=== PATIENT | male | born 1985 | race Caucasian/White ===

== ENCOUNTER 2021-11-08 09:11 | Emergency (ER) | payer BC, SELFPAY ==
[2021-11-08 09:33] VITALS: BP 125/83; PULSE 103; RESP 16; TEMP 36.1; O2SAT 95
--- NOTE | 2021-11-08 10:06 | ED.SKABFB ---
HPI - Skin/Abscess/Foreign Bdy General Chief complaint: Skin/Abscess/Foreign Body Stated complaint: cyst Time Seen by Provider: 11/08/21 10:03 Source: patient, RN notes reviewed and old records reviewed Mode of arrival: ambulatory Limitations: no limitations History of Present Illness HPI narrative: 36-year-old male presents to [facility] with complaints of red raised painful lesion to area of right upper gluteal fold for approximately 1 week duration. Patient reports that he has Cystic Fibrosis and is presently also on Cipro daily and is on new medication Trikafta which has helped him manage his condition greatly.Patient has 1.5X1.5cm firm raised red tender area to upper right gluteal fold with no induration of tissue.Patient denies any fevers, chills or sweats. MD complaint: abscess/boil Related Data Home Medications Medication Instructions Recorded Confirmed azithromycin 500 mg PO DAILY 11/08/21 11/08/21 blood-glucose sensor [Dexcom G6 11/08/21 11/08/21 Sensor] blood-glucose transmitter [Dexcom 11/08/21 11/08/21 G6 Transmitter] ciprofloxacin HCl 750 mg PO DAILY 11/08/21 11/08/21 dornase jacinta [Pulmozyme] 1 mg INHALATION DAILY 11/08/21 11/08/21 zxuzywjsctq-jaakmrwrom-nryjwmx 1 ea PO DAILY 11/08/21 11/08/21 [Trikafta] insulin aspart U-100 100 unit SUBCUT DAILY 11/08/21 11/08/21 ktdnrd-lwhkeeby-fguugrf [Creon] 1 cap PO DAILY 11/08/21 11/08/21 lisinopril 10 mg PO DAILY 11/08/21 11/08/21 omeprazole 40 mg PO DAILY 11/08/21 11/08/21 tobramycin in 0.225 % NaCl 300 mg INHALATION DAILY 11/08/21 11/08/21 Allergies Allergy/AdvReac Type Severity Reaction Status Date / Time No Known Allergies Allergy Unknown Verified 11/08/21 10:26 Review of Systems Review of Systems: CONSTITUTIONAL: Denies fever, chills, or sweats. EYES: Denies visual changes, redness, or discharge. ENT: Denies acute rhinorrhea, congestion, sore throat, or otalgia. CARDIOVASCULAR: Denies chest pain, palpitations, or edema. RESPIRATORY: Denies cough or dyspnea. GASTROINTESTINAL: Denies abdominal pain, nausea, vomiting, or diarrhea. GENITOURINARY: Denies dysuria or hematuria. SKIN: Positive for red raised firm painful lesion to right upper gluteal fold MUSCULOSKELETAL: Denies back pain, joint pain, or myalgia. NEUROLOGIC: Denies headache, numbness, or weakness. PSYCHIATRIC: Positive for history of anxiety or depression. All systems reviewed & are unremarkable except as noted in HPI and below PMFSH Past Medical History Medical History (Updated 11/10/21 @ 00:24 by Devora Carrillo NP) Anxiety and depression Cystic fibrosis Diabetes Pelvic fracture Surgical History Surgical History (Updated 11/10/21 @ 00:24 by Devora Carrillo NP) H/O sinus surgery Family History Family History Sibling Family history of cystic fibrosis Mother Family history of mental disorder Grandparent Family history of bipolar disorder Family history of glaucoma Father Asthma Father Asthma Social History Social History (Updated 11/10/21 @ 00:22 by Devora Carrillo NP) Smoking status: Never smoker Second hand tobacco smoke exposure: No Alcohol intake: current Substance use: never Living arrangements: with family Gender identity (if verbalized by the patient): Male Comments At time of signature, agree with nursing past medical, surgical, social and family history. There is no relevant family history pertinent to the presenting complaint Exam Narrative: GENERAL: Well-appearing, well-nourished, and in no acute distress. HEAD: Normocephalic, atraumatic. EYES: PERRLA and EOMI. ENT: Nares clear, some clear rhinorrhea no epistaxis. Mucous membranes moist.TM's normal with good light reflex, throat normal with no lesions or exudates or tonsil swelling. NECK: Supple.no lymphadenopathy CHEST: Clear to auscultation. No respiratory distress. SaO2 95% on room air HEART: Regular rate and rhythm.
== END 2021-11-08 10:55 | disposition home or self-care (01) ==
PROVIDERS: Emergency Provider Registered Nurse
DX: L02.31 Cutaneous abscess of buttock (principal); E84.9 Cystic fibrosis, unspecified; E11.9 Type 2 diabetes mellitus without complications; F41.9 Anxiety disorder, unspecified; F32.A Depression, unspecified
CPT/HCPCS: 99213; G0463

== ENCOUNTER 2021-12-25 18:31 | Emergency (ER) | payer BC, SELFPAY ==
[2021-12-25] VITALS (26 sets, daily range): BP systolic 143–195; BP diastolic 75–89; PULSE 67–90; RESP 12–23; TEMP 36.5; O2SAT 97–100
--- NOTE | ~2021-12-25 | XR_ITS ---
EXAMINATION: XR chest 2V DATE: 12/25/2021 19:14 INDICATION: Midsternal chest pain, history of cystic fibrosis TECHNIQUE: PA and lateral views of the chest are obtained. COMPARISON: 04/13/2015 FINDINGS: There are chronic right perihilar opacities. No acute airspace opacities are identified. A right internal jugular port ends with its tip in the distal superior vena cava. There is no pleural e ffusion or pneumothorax. The cardiomediastinal silhouette is normal. The visualized bones and soft ti ssues are unremarkable. IMPRESSION: 1. No acute cardiopulmonary abnormality. 2. Chronic right perihilar opacities, consistent with cystic fibrosis. Reviewed, dictated and finalized at location F. LEADER/CONTROL ROOM OPERATOR
--- NOTE | 2021-12-25 18:49 | ECG_ITS ---
Measurements Intervals [place] Rate: 70 P: 59 LA: 132 QRS: 14 QRSD: 95 T: 24 QT: 399 QTc: 433 Interpretive Statements SINUS RHYTHM LEFT ATRIAL ENLARGEMENT DELAYED PRECORDIAL R/S TRANSITION POSSIBLE LEFT VENTRICULAR HYPERTROPHY BASELINE ARTIFACT- II, III, AVR, AVF, V3-V6 BORDERLINE ECG Electronically Signed On 12-25-2021 19:15:09 TELEGRAPHIC TYPEWRITER OPERATOR CHIEF by Evan Shetty D.O.
[2021-12-25 19:09] LABS: Basophils Percent Auto 0.4 % (0.2-1.2); Eosinophils Absolute Auto 0.4 K/mm3 (0-0.3); Hematocrit 39.8 % (42.0-52.0); Hemoglobin 13.3 g/dL (14.0-18.0); Immature Granulocyte Absolute 0.03 K/mm3 (0.00-0.031); Immature Granulocyte Percent A 0.3 % (0-0.5); Lymphocytes Absolute Auto 2.38 K/mm3 (0.9-3.2); Mean Corpuscular HGB Conc 33.4 g/dl (32-36); Mean Corpuscular Volume 86.9 fl (80-100); Mean Platelet Volume 10.1 fl (7.4-10.4); Monocytes Absolute Auto 0.9 K/mm3 (0.1-0.6); Monocytes Percent Auto 8.1 % (2.6-8.5); Neutrophils Absolute Auto 7.1 K/mm3 (1.3-6.7); Neutrophils Percent Auto 65.2 % (45.5-73.1); Platelet Count Result 345 k/mm3 (150-375); Red Blood Count 4.58 M/mm3 (4.6-6.20); Red Cell Distribution Width 14.7 % (11.5-14.5); White Blood Count 10.8 K/mm3 (4.5-10.0)
[2021-12-25 19:20] LABS: INR 1.1; Partial Thromboplastin Time 30.5 SECONDS (22.3-36.8); Prothrombin Time 13.3 Seconds (11.1-14.7)
[2021-12-25 19:33] LABS: Alanine Aminotransferase 24 U/L (4-50); Albumin Level 4.1 g/dL (3.5-5.1); Alkaline Phosphatase 166 U/L (38-126); Anion Gap 9 mmol/L (8-16); Aspartate Amino Transferase 30 U/L (17-59); Bilirubin,Total 0.9 mg/dL (0.2-1.3); Blood Urea Nitrogen 13 mg/dL (9-20); Calcium 8.8 mg/dL (8.4-10.2); Carbon Dioxide 23 mmol/L (22-30); Chloride 104 mmol/L (98-107); Estimated CRCL calculation 69 ml/min; Estimated Glomerular Filt Rate > 60; Glucose 133 mg/dL (65-110); Lipase 13 U/L (23-300); Potassium 3.8 mmol/L (3.4-5.0); Sodium 136 mmol/L (137-145)
--- NOTE | 2021-12-25 19:40 | ED.CHESTPAIN ---
HPI - Chest Pain General Chief Complaint: Chest Pain Stated Complaint: Chest Pain Time Seen by Provider: 12/25/21 19:13 Source: patient Mode of arrival: ambulatory Limitations: no limitations History of Present Illness HPI narrative: Patient is a 36-year-old male complaining of chest pain, left chest wall, dull, 5 out of 10, nonradiating started this morning. Patient denies any shortness of breath, abdominal pain, nausea, vomiting, diaphoresis, fever or chills Related Data Home Medications Medication Instructions Recorded Confirmed azithromycin 500 mg PO DAILY 11/08/21 11/08/21 blood-glucose sensor [Dexcom G6 11/08/21 11/08/21 Sensor] blood-glucose transmitter [Dexcom 11/08/21 11/08/21 G6 Transmitter] dornase jacinta [Pulmozyme] 1 mg INHALATION DAILY 11/08/21 11/08/21 phbjmqylcmw-zqjchdiywo-mkzbmwz 1 ea PO USEASDIRECTD 11/08/21 11/08/21 [Trikafta] insulin aspart U-100 100 unit SUBCUT DAILY 11/08/21 11/08/21 hhkbss-eqpxlovu-iowdvdf [Creon] 1 cap PO TIDWMEAL 11/08/21 11/08/21 lisinopril 10 mg PO DAILY 11/08/21 11/08/21 omeprazole 40 mg PO DAILY 11/08/21 11/08/21 tobramycin in 0.225 % NaCl 300 mg INHALATION DAILY 11/08/21 11/08/21 paroxetine HCl 40 mg PO DAILY 12/25/21 Allergies Allergy/AdvReac Type Severity Reaction Status Date / Time No Known Allergies Allergy Unknown Verified 12/25/21 20:21 Review of Systems Review of Systems: All systems reviewed & are unremarkable except as noted in HPI and below Constitutional: Constitutional: Denies body ache(s), Denies chills, Denies excessive sweating, Denies fatigue, Denies fever(s), Denies headache(s), Denies lethargy, Denies malaise, Denies weakness and Denies weight loss Eyes: Eyes: Denies blurry vision, Denies change in vision and Denies loss of vision ENT: Denies dizziness, Denies ear discharge, Denies headache(s), Denies lip swelling, Denies epistaxis, Denies nasal congestion, Denies neck pain, Denies throat swelling and Denies tongue swelling Cardiovascular: Cardiovascular: Denies diaphoresis, Denies rapid heart rate, Denies edema, Denies irregular heart rhythm, Denies lightheadedness, Denies palpitations, Denies dyspnea and Denies dyspnea on exertion Respiratory: Respiratory: Denies chest congestion, Denies cough, Denies hemoptysis, Denies dyspnea and Denies dyspnea on exertion Gastrointestinal: Gastrointestinal: Denies abdominal pain, Denies melena, Denies hematochezia, Denies diarrhea, Denies nausea, Denies vomiting and Denies hematemesis Musculoskeletal: Musculoskeletal: Denies abnormal gait, Denies deformity, Denies joint swelling, Denies limited range of motion, Denies neck pain and Denies numbness Neurologic: Denies Abnormal speech present, Denies abnormal gait, Denies confusion, Denies dizziness, Denies headache(s), Denies focal weakness, Denies loss of vision, Denies numbness, Denies Other visual disturbances, Denies Sensory deficit (Neuro) and Denies weakness Psychiatric: Psychiatric: Denies confusion, Denies depression, Denies auditory hallucinations, Denies homicidal ideation and Denies suicidal ideation Endocrine: Endocrine: Denies cold intolerance, Denies excessive sweating, Denies fatigue, Denies heat intolerance and Denies palpitations Hematologic/Lymphatic: Hematologic/Lymphatic: Denies easy bleeding and Denies easy bruising Allergic/Immunologic: Allergic/Immunologic: Denies lip swelling, Denies throat swelling and Denies tongue swelling PMFSH Past Medical History Medical History Anxiety and depression Cystic fibrosis Diabetes Pelvic fracture Surgical History Surgical History H/O sinus surgery Family History Family History Sibling Family history of cystic fibrosis Mother Family history of mental disorder Grandparent Family history of bipolar disorder Family history of gla
[2021-12-25 19:45] LABS: Troponin I < 0.012 ng/mL (0.000-0.034)
[2021-12-25] MEDS: ASPIRIN 81 MG CHEWABLE TABLET 324 MG PO (20:18)
[2021-12-25 22:34] LABS: Troponin I < 0.012 ng/mL (0.000-0.034)
== END 2021-12-25 23:21 | disposition home or self-care (01) ==
PROVIDERS: Physician Assistant; Emergency Provider Emergency Medicine; PCP Family Medicine
DX: E84.9 Cystic fibrosis, unspecified (principal); E11.9 Type 2 diabetes mellitus without complications; F41.9 Anxiety disorder, unspecified; F32.A Depression, unspecified; Z79.4 Long term (current) use of insulin
CPT/HCPCS: 36415; 71046; 80053; 83690; 84484; 85025; 85610; 85730; 93005; 99284; A9270

== ENCOUNTER 2023-11-19 15:18 | Emergency (ER) | payer OTHER, BC, SELFPAY ==
[2023-11-19] VITALS (7 sets, daily range): BP systolic 96–161; BP diastolic 55–94; PULSE 60–84; RESP 12–18; TEMP 36.1; O2SAT 97–100
--- NOTE | ~2023-11-19 | XR_ITS ---
EXAMINATION: XR chest 2V DATE: 11/19/2023 15:49 INDICATION: Chest pain. TECHNIQUE: Frontal and lateral views of the chest were obtained. COMPARISON: Chest 2 views 12/25/2021 FINDINGS: There are interstitial opacities in the lungs with an upper lung predominance. No pleural e ffusion or pneumothorax. The heart size is normal. There is a right internal jugular port with tip in superior vena cava. IMPRESSION: 1. Stable chronic lung disease with an upper lung predominance, consistent with cystic fibrosis. Reviewed, dictated and finalized at location E. CCO SORTER
--- NOTE | ~2023-11-19 | CT_ITS ---
EXAMINATION: CT abdomen pelvis w con DATE: 11/19/2023 17:20 INDICATION: Epigastric abdominal pain. Vomiting. TECHNIQUE: Computed tomography (CT) of the abdomen and pelvis was performed with 100 mL Omnipaque 350 intravenous contrast. Automated exposure control and iterative reconstruction technique were employe d. The dose-length product was 491.36 mGy-cm. COMPARISON: None. FINDINGS: The visualized portions of the lung bases demonstrate bronchiectasis and mild atelectasis. No pleural effusion. The heart size is normal. No pericardial effusion. The liver, gallbladder, splee n, pancreas, adrenal glands, and kidneys are normal. There are no dilated loops of bowel. There are n o pathologically enlarged lymph nodes. There is no free intraperitoneal fluid. There are old healed f ractures of the bilateral superior and inferior pubic rami. There is screw fixation of the sacroiliac joints. There is a chronic compression fracture of L1. There is mild lumbar spondylosis. IMPRESSION: 1. No etiology for the patient's symptoms. Reviewed, dictated and finalized at location E. OIL COOLER OPERATOR
--- NOTE | 2023-11-19 15:19 | ECG_ITS ---
Measurements Intervals [place] Rate: 69 P: 74 VT: 164 QRS: 1 QRSD: 84 T: 55 QT: 404 QTc: 435 Interpretive Statements SINUS RHYTHM LEFT ATRIAL ENLARGEMENT CANNOT RULE OUT SEPTAL INFARCT, AGE INDETERMINATE BASELINE ARTIFACT- I, III, AVR, AVL, AVF, V1-V3 ABNORMAL ECG COMPARED TO ECG 12/25/2021 18:44:23 Electronically Signed On 11-19-2023 15:50:24 CHEMICAL RESEARCH WORKER by Evan Shetty D.O.
[2023-11-19 15:38] LABS: Basophils Percent Auto 0.3 % (0.2-1.2); Eosinophils Absolute Auto 0.3 K/mm3 (0-0.3); Eosinophils Percent Auto 2.4 % (0-4.4); Hematocrit 36.9 % (42.0-52.0); Hemoglobin 12.4 g/dL (14.0-18.0); Immature Granulocyte Absolute 0.04 K/mm3 (0.00-0.031); Immature Granulocyte Percent A 0.3 % (0-0.5); Lymphocytes Absolute Auto 1.25 K/mm3 (0.9-3.2); Lymphocytes Percent Auto 10.9 % (18.3-44.2); Mean Corpuscular HGB Conc 33.6 g/dl (32-36); Mean Corpuscular Hemoglobin 28.8 pg (26-34); Mean Corpuscular Volume 85.6 fl (80-100); Mean Platelet Volume 9.9 fl (7.4-10.4); Monocytes Absolute Auto 0.5 K/mm3 (0.1-0.6); Monocytes Percent Auto 3.9 % (2.6-8.5); Neutrophils Absolute Auto 9.4 K/mm3 (1.3-6.7); Neutrophils Percent Auto 82.2 % (45.5-73.1); Platelet Count Result 260 k/mm3 (150-375); Red Blood Count 4.31 M/mm3 (4.6-6.20); Red Cell Distribution Width 14.2 % (11.5-14.5); White Blood Count 11.4 K/mm3 (4.5-10.0)
[2023-11-19 15:49] LABS: Alanine Aminotransferase 29 U/L (6-50); Albumin Level 3.6 g/dL (3.5-5.1); Alkaline Phosphatase 178 U/L (38-126); Anion Gap 7 mmol/L (8-16); Aspartate Amino Transferase 26 U/L (17-59); Blood Urea Nitrogen 33 mg/dL (9-20); Calcium 8.5 mg/dL (8.4-10.2); Carbon Dioxide 22 mmol/L (22-30); Chloride 107 mmol/L (98-107); Estimated CRCL calculation 53 ml/min; Estimated Glomerular Filt Rate 53; Glucose 165 mg/dL (65-110); Sodium 136 mmol/L (137-145)
[2023-11-19 15:50] LABS: Partial Thromboplastin Time 29.2 SECONDS (22.3-36.8); Prothrombin Time 13.4 Seconds (11.1-14.7)
[2023-11-19 16:00] LABS: Troponin I < 0.012 ng/mL (0.000-0.034)
[2023-11-19 16:17] LABS: Lipase < 10 U/L (23-300)
[2023-11-19] MEDS: SODIUM CHLORIDE 0.9% IV 1,000 ML 999 ML IV CONT ×2 (17:09→20:12)
[2023-11-19] MEDS: HYDROmorphone HCL INJ (*CRX) 1 MG/ML SYR 0.5 MG IV PUSH ×2 (17:10→20:11)
[2023-11-19] MEDS: ONDANSETRON INJ 4 MG/2 ML VIAL IV PUSH ×2 (17:10→20:11)
[2023-11-19] MEDS: FAMOTIDINE 20 MG/2 ML VIAL IV PUSH (17:28)
--- NOTE | 2023-11-19 17:40 | ED.CHESTPAIN ---
HPI - Chest Pain General Chief Complaint: Chest Pain Stated Complaint: chest pain Time Seen by Provider: 11/19/23 16:07 History of Present Illness HPI narrative: patient is a 38-year-old male with a history of cystic fibrosis, type 1 diabetes presenting with epigastric pain. Patient states that he woke up and felt fine. States that sometime in the morning he started to develop some nausea and generalized abdominal discomfort. He tried to eat a small meal but unfortunately his symptoms continued and worsened. He then developed severe epigastric pain associated with vomiting. States this happened 1 time several months ago and he was seen in an ER and able to go home. He denies fevers, cough, dyspnea, constipation, dysuria, leg swelling. Related Data Home Medications Medication Instructions Recorded Confirmed azithromycin 500 mg tablet 500 mg PO DAILY 11/08/21 11/08/21 blood-glucose sensor (Dexcom G6 11/08/21 11/08/21 Sensor device) blood-glucose transmitter (Dexcom 11/08/21 11/08/21 G6 Transmitter device) dornase jacinta 1 mg/mL solution for 1 mg inhalation DAILY 11/08/21 11/08/21 inhalation (Pulmozyme) elexacaftor 100 mg-tezacaf 1 ea PO USEASDIRECTD 11/08/21 11/08/21 50mg-ivacaf 75mg(d)/ivacaf 150mg(n) tablets (Trikafta) insulin aspart U-100 100 unit/mL 100 unit subcut DAILY 11/08/21 11/08/21 subcutaneous solution gdtoea-khbjidvw-dwloozo 1 cap PO TIDWMEAL 11/08/21 11/08/21 36,000-114,000-180,000 unit capsule,delay rel (Creon) lisinopril 10 mg tablet 10 mg PO DAILY 11/08/21 11/08/21 omeprazole 40 mg capsule,delayed 40 mg PO DAILY 11/08/21 11/08/21 release tobramycin 300 mg/5 mL in 0.225 % 300 mg inhalation DAILY 11/08/21 11/08/21 sodium chloride for nebulization Allergies Allergy/AdvReac Type Severity Reaction Status Date / Time No Known Allergies Allergy Unknown Verified 12/25/21 20:21 Review of Systems Review of Systems: All systems reviewed & are unremarkable except as noted in HPI and below PMFSH Past Medical History Medical History Anxiety and depression Cystic fibrosis Diabetes Pelvic fracture Surgical History Surgical History H/O sinus surgery Family History Family History Sibling Family history of cystic fibrosis Mother Family history of mental disorder Grandparent Family history of bipolar disorder Family history of glaucoma Father Asthma Father Asthma Social History Social History Smoking status: Never smoker Second hand tobacco smoke exposure: No Alcohol intake: current Substance use: never Living arrangements: with family Gender identity (if verbalized by the patient): Male Exam Narrative: GENERAL: Nontoxic, no acute distress, pleasant cooperative HEAD: Normocephalic, atraumatic. EYES: PERRLA and EOMI. ENT: Mucous membranes dry NECK: Supple. CHEST: Clear to auscultation. No respiratory distress. HEART: Regular rate and rhythm. No murmur heard. Normal peripheral pulses. ABDOMEN: Soft, nontender, nondistended, normal active bowel sounds. EXTREMITIES: Normal range of motion. No edema. SKIN: Warm, dry, no rash. NEURO: No focal deficits. Alert and oriented x3. PSYCH: Normal mood and affect. Course Vital Signs Vital signs: Vital Signs Pulse Rate 60 11/19/23 15:29 Respiratory Rate 18 11/19/23 15:29 Blood Pressure 96/55 L 11/19/23 15:29 Pulse Oximetry 100 11/19/23 15:29 Temperature 96.9 F L 11/19/23 15:35 Pulse Rate 77 11/19/23 20:41 Respiratory Rate 15 11/19/23 20:41 Blood Pressure 157/87 H 11/19/23 20:41 Pulse Oximetry 100 11/19/23 20:41 MDM - Chest Pain MDM Narrative Medical decision making narrative: Patient is a 38-year-old male presenting
--- NOTE | 2023-11-19 19:01 | ECG_ITS ---
Measurements Intervals [place] Rate: 70 P: 61 NM: 153 QRS: -3 QRSD: 94 T: 50 QT: 393 QTc: 426 Interpretive Statements SINUS RHYTHM POSSIBLE LEFT ATRIAL ENLARGEMENT BASELINE ARTIFACT- V4-V6 BORDERLINE ECG COMPARED TO ECG 11/19/2023 15:23:38 NO SIGNIFICANT CHANGES Electronically Signed On 11-20-2023 10:07:24 BIODIESEL PROCESSING TECHNICIAN by Evan Shetty D.O.
[2023-11-19 19:25] LABS: Troponin I < 0.012 ng/mL (0.000-0.034)
[2023-11-19] MEDS: BELLADONNA ALK/PHENOB ELIX 10 ML, MAG HYDROX/ALUMINUM HYD/SIMETH 30 ML, LIDOCAINE HCL 2... PO (20:34)
[2023-11-19] MEDS: HYDROcodone/acetaminophen (*CRX) 5-325 MG TABLET 1 TAB PO (22:26)
[2023-11-19] MEDS: HEPARIN SODIUM LOCK FLUSH 500 UNITS/5 ML VIAL (22:48)
== END 2023-11-19 22:50 | disposition home or self-care (01) ==
PROVIDERS: Emergency Provider Emergency Medicine; PCP Family Medicine
DX: R10.13 Epigastric pain (principal); R11.2 Nausea with vomiting, unspecified; F41.9 Anxiety disorder, unspecified; F32.A Depression, unspecified; E84.9 Cystic fibrosis, unspecified; E11.9 Type 2 diabetes mellitus without complications; Z79.4 Long term (current) use of insulin
CPT/HCPCS: 36415; 71046; 74177; 80053; 83690; 84484; 85025; 85610; 85730; 93005; 96361; 96374; 96375; 96376; 99284; A9270; J1170; J1642; J2405; J7030; Q9967

== ENCOUNTER 2024-03-16 02:22 | Day surgery (SDC) | payer OTHER, SELFPAY ==
[2024-03-15 11:53] VITALS: BMI 26.7
[2024-03-16 06:44] VITALS: BP 116/77; PULSE 95; RESP 18; TEMP 36.1; O2SAT 98
[2024-03-16 06:53] LABS: Glucose Point of Care 294 mg/dl (65-105)
--- NOTE | 2024-03-16 07:25 | WPDANESEPPF ---
Anes - Initial Pre Proc Eval Procedure: Operation Date: 03/16/24 08:00 Proposed Procedures p Esophagogastroduodenoscopy - Marvin Zabala MD Date/Time: 03/16/24 07:25 Surgeon: Marvin Zabala MD Pre Op Diagnosis: Epigastric pain, N&V, Other chest pain Patient Data Age: 38 Gender: M Height: 1.65 m Weight: 77.6 kg Last Vital Signs Temp 97 F L 03/16/24 06:44 Pulse 95 03/16/24 06:44 Resp 18 03/16/24 06:44 BP 116/77 03/16/24 06:44 Pulse Ox 98 03/16/24 06:44 O2 Del Method Room Air 03/16/24 06:44 Allergies Allergy/AdvReac Type Severity Reaction Status Date / Time No Known Allergies Allergy Unknown Verified 03/16/24 06:43 Home Medications Medication Instructions Recorded Confirmed Type azithromycin 500 mg tablet 500 mg PO EVERY OTHER DAY 11/08/21 03/15/24 History blood-glucose sensor (Dexcom G6 11/08/21 11/27/23 History Sensor device) blood-glucose transmitter (Dexcom 11/08/21 11/27/23 History G6 Transmitter device) dornase jacinta 1 mg/mL solution for 1 mg inhalation DAILY 11/08/21 03/15/24 History inhalation (Pulmozyme) elexacaftor 100 mg-tezacaf 1 ea PO USEASDIRECTD 11/08/21 03/15/24 History 50mg-ivacaf 75mg(d)/ivacaf 150mg(n) tablets (Trikafta) insulin aspart U-100 100 unit/mL 100 unit subcut DAILY 11/08/21 03/15/24 History subcutaneous solution ijauni-nmbzvqyd-rjczmml 1 cap PO TIDWMEAL 11/08/21 03/15/24 History 36,000-114,000-180,000 unit capsule,delay rel (Creon) lisinopril 10 mg tablet 10 mg PO DAILY 11/08/21 03/15/24 History tobramycin 300 mg/5 mL in 0.225 % 300 mg inhalation DAILY 11/08/21 03/15/24 History sodium chloride for nebulization bupropion HCl 300 mg 24 hr tablet, See Rx Instructions .Route 09/02/22 03/15/24 Rx extended release .COMPLEX #90 tabs paroxetine HCl 40 mg tablet See Rx Instructions .Route 09/02/22 03/15/24 Rx .COMPLEX #90 tabs ondansetron 4 mg disintegrating 4 mg PO Q8H PRN nausea and 11/19/23 03/15/24 Rx tablet vomiting #14 tabs pantoprazole 20 mg tablet,delayed 20 mg PO DAILY 4 weeks #30 tabs 11/27/23 03/15/24 Rx release Laboratory Tests 03/16/24 06:48 POC Capillary Glucose 294 H mg/dl (65-105) Patient hx anesthesia problems: none Family hx anesthesia problems: none Results Review: All pre-operative results and documents have been reviewed as part of the pre-operative evaluation. [facility] Past Medical History Medical History (Updated 11/27/23 @ 09:10 by Karly August APRN) Anxiety and depression Cystic fibrosis Diabetes Exocrine pancreatic insufficiency Hypertension Pelvic fracture Surgical History Surgical History H/O sinus surgery Family History Family History Sibling Family history of cystic fibrosis Mother Family history of mental disorder Grandparent Family history of bipolar disorder Family history of glaucoma Father Asthma Father Asthma Social History Social History Smoking status: Never smoker Second hand tobacco smoke exposure: No Alcohol intake: never Substance use: never Substance use type: does not use Living arrangements: with family Gender identity (if verbalized by the patient): Male Spiritual care concerns: No Anes - Eval Final PreProcedure Day of Procedure 03/16/24 07:25 Patient weight: normal Heart: regular rate and rhythm Lungs: clear to auscultation Airway: Mallampati scale class II Neurological: alert and oriented Last oral intake: >/= 8 hours ASA classification: III Emergent: no Anesthetic plan: proceed Anesthesia type and monitoring: general GIVS and standard monitoring Results Review: All pre-operative results and documents have been reviewed as part of the pre-operative evaluation. Informed Consent: The patien
--- NOTE | 2024-03-16 07:51 | PM.HPGS ---
History of Present Illness History of Present Illness Consent: Risks, benefits, and alternatives have been discussed and questions answered. Patient agrees to proceed with procedure. Chief complaint: Epigastric pain, N&V, Other chest pain Narrative: Paul Ford is a 38 year old male with intermittent epigastric pain, started back again about 5 days ago- using omeprazole since with some relief. He went to ER earlier this year, CT scan negative, also h/o CF, using creon, never had EGD. Review of Systems Review of Systems: All systems reviewed & are unremarkable except as noted in HPI and below PMFSH Past Medical History Medical History (Updated 11/27/23 @ 09:10 by Karly August, NILO) Anxiety and depression Cystic fibrosis Diabetes Exocrine pancreatic insufficiency Hypertension Pelvic fracture Surgical History Surgical History H/O sinus surgery Family History Family History Sibling Family history of cystic fibrosis Mother Family history of mental disorder Grandparent Family history of bipolar disorder Family history of glaucoma Father Asthma Father Asthma Social History Social History Smoking status: Never smoker Second hand tobacco smoke exposure: No Alcohol intake: never Substance use: never Substance use type: does not use Living arrangements: with family Gender identity (if verbalized by the patient): Male Spiritual care concerns: No Meds Home Medications and Allergies Home Medications Medication Instructions Recorded Confirmed Type azithromycin 500 mg tablet 500 mg PO EVERY OTHER DAY 11/08/21 03/15/24 History blood-glucose sensor (Dexcom G6 11/08/21 11/27/23 History Sensor device) blood-glucose transmitter (Dexcom 11/08/21 11/27/23 History G6 Transmitter device) dornase jacinta 1 mg/mL solution for 1 mg inhalation DAILY 11/08/21 03/15/24 History inhalation (Pulmozyme) elexacaftor 100 mg-tezacaf 1 ea PO USEASDIRECTD 11/08/21 03/15/24 History 50mg-ivacaf 75mg(d)/ivacaf 150mg(n) tablets (Trikafta) insulin aspart U-100 100 unit/mL 100 unit subcut DAILY 11/08/21 03/15/24 History subcutaneous solution lqtuea-emldoxco-cnhvlfu 1 cap PO TIDWMEAL 11/08/21 03/15/24 History 36,000-114,000-180,000 unit capsule,delay rel (Creon) lisinopril 10 mg tablet 10 mg PO DAILY 11/08/21 03/15/24 History tobramycin 300 mg/5 mL in 0.225 % 300 mg inhalation DAILY 11/08/21 03/15/24 History sodium chloride for nebulization bupropion HCl 300 mg 24 hr tablet, See Rx Instructions .Route 09/02/22 03/15/24 Rx extended release .COMPLEX #90 tabs paroxetine HCl 40 mg tablet See Rx Instructions .Route 09/02/22 03/15/24 Rx .COMPLEX #90 tabs ondansetron 4 mg disintegrating 4 mg PO Q8H PRN nausea and 11/19/23 03/15/24 Rx tablet vomiting #14 tabs pantoprazole 20 mg tablet,delayed 20 mg PO DAILY 4 weeks #30 tabs 11/27/23 03/15/24 Rx release Allergies Allergy/AdvReac Type Severity Reaction Status Date / Time No Known Allergies Allergy Unknown Verified 03/16/24 06:43 Vital Signs Vital Signs - 24 hr 03/16/24 06:44 Temperature 97 F L Pulse Rate 95 Respiratory Rate 18 Blood Pressure 116/77 Pulse Oximetry 98 Oxygen Delivery Room Air Exam Const: General: comfortable and no acute distress HENMT: Face/Nose/Sinus: Normal nares present Eyes: General: appearance normal, both eyes and all related structures Neck: Neck: no JVD Resp: Auscultation: clear to auscultation bilaterally Cardio: Rate: regular rate Rhythm: regular rhythm GI: Inspection: non-distended GI Palp: Yes Soft to palpation Skin: General skin exam: normal color Neuro: General: gait normal Speech: normal speech Extrem: General: normal to inspection Psych: Mental Status: mental status grossly normal
[2024-03-16] MEDS: LACTATED RINGERS 1,000 ML 150 ML IV CONT (08:02)
[2024-03-16 08:04] VITALS: BP 98/60; PULSE 92; RESP 17; O2SAT 98
[2024-03-16 08:14] VITALS: BP 95/64; PULSE 88; RESP 16; O2SAT 99
[2024-03-16 08:24] VITALS: BP 97/65; PULSE 89; RESP 21; O2SAT 98
--- NOTE | 2024-03-16 08:41 | SUR.PHASEII ---
Dexcom used to recheck blood glucose level 250.
== END 2024-03-16 08:38 | disposition home or self-care (01) ==
PROVIDERS: PCP Family Medicine; Referring Provider Nurse Practitioner; Visit Provider Internal Medicine Gastroenterology
PROC: 0DJ08ZZ Inspection of Upper Intestinal Tract, Via Natural or Artificial Opening Endoscopic (ICD-10-PCS; CPT 43235; principal; 2024-03-16 08:00)
DX: K31.84 Gastroparesis (principal); Z79.4 Long term (current) use of insulin; E84.9 Cystic fibrosis, unspecified; K86.81 Exocrine pancreatic insufficiency; I10 Essential (primary) hypertension; E11.9 Type 2 diabetes mellitus without complications; F41.8 Other specified anxiety disorders
CPT/HCPCS: 43239; 82948; 88305; J2704; J7120

== ENCOUNTER 2024-04-28 16:15 | Outpatient (RCR) | payer OTHER, SELFPAY ==
[2024-04-20 09:02] VITALS: PULSE 78
== END 2024-05-13 16:37 | disposition home or self-care (01) ==
LOC: ANHCPREHAB 16:15
PROVIDERS: PCP Family Medicine; Visit Provider Internal Medicine Cardiovascular Disease
DX: Z95.5 Presence of coronary angioplasty implant and graft (principal)
CPT/HCPCS: 93798